=== PATIENT | female | born 1965 | race Two or more races ===

== ENCOUNTER 2022-10-25 10:00 | Emergency (ER) | payer BC, OTHER ==
[~2022-10-25] VITALS: Ht 154.9 cm; Wt 61.2 kg
[~2022-10-25 10:00] MED LIST: LEVO50TA8 PO
[2022-10-25] MEDS ORDERED: IV NS 0.9% 500 ML BAG IV ONE (10:30)
--- NOTE | 2022-10-25 10:30 | NUR ---
PT TO RADIOLOGY FOR CT [facility].
--- NOTE | 2022-10-25 10:46 | NUR ---
BLOOD SAMPLE TAKEN SENT TO LAB
--- NOTE | 2022-10-25 10:46 | NUR ---
IV LINE LEFT AC 20 G,
[2022-10-25 11:05] LABS: CALCIUM, SERUM 9.6 mg/dL (8.5-10.1); CREATININE 0.6 mg/dL (0.6-1.3); POTASSIUM 4.1 mmol/L (3.5-5.1)
[2022-10-25 11:11] LABS: ALBUMIN 3.8 g/dL (3.4-5.0); BILIRUBIN,DIRECT 0.1 mg/dL (0.0-0.2); BILIRUBIN,TOTAL 0.4 mg/dL (0.2-1.0); TOTAL PROTEIN, SERUM 7.4 g/dL (6.4-8.2)
[2022-10-25] MEDS ORDERED: MORPHINE SULFATE INJ 2 MG/ML DISP.SYRIN ONE (11:11)
[2022-10-25] MEDS ORDERED: MORPHINE SULFATE INJ 2 MG/ML DISP.SYRIN IV ONE (11:30)
--- NOTE | 2022-10-25 11:48 | NUR ---
MOVE SHEET SUBMITTED.
[2022-10-25 11:53] LABS: BASOPHILS % (AUTO) 0.5 % (0.0-2.0); EOSINOPHILS % (AUTO) 1.7 % (0.0-6.0); HEMATOCRIT 42 % (33-45); HEMOGLOBIN 13.7 g/dL (11.5-14.8); LYMPHOCYTES # (AUTO) 1.1 K/uL (0.8-4.8); LYMPHOCYTES % (AUTO) 12.1 % (20.0-44.0); MEAN CORPUSCULAR HGB CONC 33 g/dl (31.0-36.0); MEAN CORPUSCULAR VOLUME 87 fL (82-100); MONOCYTES # (AUTO) 0.5 K/uL (0.1-1.30); MONOCYTES % (AUTO) 5.2 % (2.0-12.0); NEUTROPHILS # (AUTO) 7.2 K/uL (1.8-8.9); NEUTROPHILS % (AUTO) 80.5 % (43.0-81.0); PLATELET COUNT (AUTO) 221 K/uL (150-450)
[2022-10-25] MEDS ORDERED: FAMO20TA8 PO (11:56)
--- NOTE | 2022-10-25 11:57 | NUR ---
covid swab collected and sent to lab
[2022-10-25] MEDS ORDERED: OMEG100037 PO (12:11)
[2022-10-25] MEDS ORDERED: CHOL100043 PO (12:11)
[2022-10-25 12:24] LABS: BILIRUBIN,URINE NEGATIVE (NEGATIVE); COLOR,URINE YELLOW (YELLOW); LEUKOCYTE ESTERASE ,URINE NEGATIVE (NEGATIVE); NITRITE, URINE NEGATIVE (NEGATIVE); PH,URINE 6.5 (5.0-8.0); PROTEIN,URINE NEGATIVE (NEGATIVE); UGLUCOSE NEGATIVE (NEGATIVE); UROBILINOGEN,URINE 0.2 EU/dL (0.2)
[2022-10-25 13:08] LABS: BACTERIA,URINE None seen /HPF (None Seen); SQUAMOUS EPITHELIAL CELL,UR Rare /HPF (None Seen); WBC,URINE NONE SEEN /HPF (0-3)
[2022-10-25] MEDS ORDERED: HYDROMORPHONE 1 MG/1 ML DISP.SYRIN IV ONE (13:30)
--- NOTE | 2022-10-25 13:46 | NUR ---
LUIS [phone] CM REGAL
[2022-10-25] MEDS ORDERED: HYDROMORPHONE 1 MG/1 ML DISP.SYRIN ONE (13:59)
--- NOTE | 2022-10-25 14:52 | NUR ---
BED AT [facility]. AWAITING PEER TO PEER. LUIS, [employer] - [phone]
--- NOTE | 2022-10-25 16:59 | NUR ---
PT SPOKE WITH DOCTOR AND SPOKE ABOUT ALL THE POSSIBLE RISKS LEAVING AMA INCLUDING POSSIBILITY OF COMPLETE BOWEL OBSTRUCTION AND POSSIILITY OD SEPSIS AND . PT WAS WITH SON AND VOICED THAT SHE UNDERSTOOD THE RISK INVOLVED WITH LEAVING AMA. PT SAID THAT SHE DID NOT WANT TO BE TRASFERED TO [facility] AND THAT SHE WOULD RATHER LEAVE AMA. PT EDUCATION WAS GIVEN AND WAS INFORMED THAT SHE COULD RETURN ANYTIME IF HER SYMPTOMS WORSENED. VITALS ARE STABLE GAIT IS STEADY AND PAIN IS CONTROLED AT TIME OF DISCHARGE. PT WAS ALSO PROVIDED COPIES OF ALL HER STUDIES AND THE CD IMAGE OF HER CT SCAN. INFORMED TO FOLLOW UP WITH HER PRIMARY CARE PHSYSICIAN.
[2022-10-25 17:03] VITALS: BP 134/68
== END 2022-10-25 17:00 | disposition left against medical advice (07) ==
LOC: ER 10:19
DX: K56.609 Unspecified intestinal obstruction, unspecified as to partial versus complete obstruction (principal); I10 Essential (primary) hypertension; E03.9 Hypothyroidism, unspecified; F17.200 Nicotine dependence, unspecified, uncomplicated; Z98.890 Other specified postprocedural states; Z79.899 Other long term (current) drug therapy; Z20.822 Contact with and (suspected) exposure to COVID-19
CPT/HCPCS: 99285; 74176; 96374; 96361; 96375; 87426; 85025; 80048; 87086; 83690; 80076; 84703; 81001; 36415; 85730; 87081; J7040; J2270; J1170; C9803